=== PATIENT | female | born 1930 | race Caucasian/White ===

== ENCOUNTER 2017-02-14 12:45 | Emergency (ER) | payer OTHER ==
--- NOTE | 2017-02-14 12:59 | EDPHY ---
H & P Time Seen by Provider: 02/14/17 12:56 HPI/ROS: CHIEF COMPLAINT: Hypertension HISTORY OF PRESENT ILLNESS: Patient is an 86-year-old female with multiple medical problems. The patient was concerned because she has been having elevated blood pressures. She has noticed this more significantly over the past 3 weeks. In the past she was treated for hypertension but her doctor noted that she was having fluctuating pressures. She would occasionally have episodes of hypotension. Because of this she was taken off her hypertension medications. Patient states she checks her blood pressure regularly. She noticed that her blood pressures been going high, as stated above, for the past 3 weeks. Last night she called the advice nurse because she measured her blood pressure at 195 systolic. She was told to measure her blood pressure throughout the night in come to the emergency department if it worsened. Patient has continued to have elevated blood pressures. She has no symptoms. She denies headache, confusion, shortness of breath, weakness, numbness, dizziness. REVIEW OF SYSTEMS: My complete review of systems is negative except as mentioned in the HPI. Past Medical/Surgical History: Includes coronary artery disease, diverticulosis, anxiety, arthritis, depression , GERD, hypertension, osteoporosis Past surgical history: Includes ventral hernia repair, appendectomy, lumpectomy , colostomy, hysterectomy, toe amputation Family history: Father mother with heart attack Social history: Patient does not smoke Smoking Status: Former smoker Physical Exam: 197/88, 54, 24, 94% on room air, 36.5 GENERAL: No acute distress, alert. Uses a walker. HEENT: Eyes normal to inspection, normal pharynx, no signs of dehydration. NECK: No thyromegaly, no lymphadenopathy, supple. RESPIRATORY: Clear to auscultation bilaterally, no rales, rhonchi or wheezing. CVS: Regular rate and rhythm, no rubs, murmurs, or gallops. ABDOMEN: Soft, nontender, nondistended, no organomegaly. BACK: Normal to inspection, no CVA tenderness. SKIN: Normal color, no rash, warm, dry. No pallor. EXTREMITIES: No pedal edema, no calf tenderness, no Homans sign or cords, no joint swelling. NEURO/PSYCH: Higher functions: Alert and Oriented x3. Normal speech and cognition. Normal mood and affect. Cranial nerves: Normal as tested. Cerebellar: Normal as tested. Good finger to nose, good [id number],gait coordinated with walker. Peripheral exam: Normal motor exam. Normal sensation. Constitutional: Initial Vital Signs Temperature (C) 36.5 C 02/14/17 13:01 Heart Rate 59 L 02/14/17 13:01 Respiratory Rate 24 H 02/14/17 13:01 Blood Pressure 197/88 H 02/14/17 13:01 O2 Sat (%) 94 02/14/17 13:01 O2 Delivery Mode Room Air Allergies/Adverse Reactions: Penicillins Allergy (Severe, Verified 02/14/17 13:00) Hives meperidine HCl [From Demerol] Allergy (Intermediate, Verified 02/14/17 13:00) Other-Enter Comments clindamycin Allergy (Mild, Verified 02/14/17 13:00) Other-Enter Comments lincomycin [Lincomycin] Allergy (Verified 02/14/17 13:00) Home Medications: Medication Instructions Recorded Aspirin EC [Aspirin EC 81 mg (OTC)] 81 mg PO HS 12/07/13 Atorvastatin Calcium [Lipitor 40 40 mg PO HS 12/07/13 mg (RX)] Calcium Carb W/Vit D [Calcium Carb 500 mg PO TID 12/07/13 W/Vit D 500/200 (OTC)] Cetirizine [ZyRTEC] 10 mg PO DAILY 12/07/13 Clopidogrel Bisulfate [Plavix (RX)] 75 mg PO DAILY18 12/07/13 Lisinopril [Zestril 40 mg (RX)] 40 mg PO DAILY 12/07/13 Metoprolol Succinate Xr [Toprol Xl 100 mg PO DAILY 12/07/13 100 mg (RX)] Omeprazole [Prilosec 20 mg] 20 mg PO HS 12/07/13 Oxybutynin Chloride Xl [Ditropan 5 mg PO HS 12/07/13 Xl] Tears/Hypromellose [Natural 1 drop EACHEYE PRN PRN 12/07/13 Balance (OTC)] Venlafaxine Xr [Effexor Xr] 150 mg PO HS 12/07/13 amLODIPine BESYLATE [Norvasc] 10 mg PO DAILY 12/07/13 oxyCODONE/APAP 5/325 [Percocet 2 tab PO Q4 PRN #30 tab 12/28/13 5/325 (*)] Medical Decision Making ED Course/Re-evaluation: In the emergency department I discussed possible etiologies with the patient. On recheck her blood pressure was 196/86. Patient is without complaints at this time. Because she states that she had episodes of hypotension, I did start her on antihypertensive medication in the emergency department. I feel it is more prudent to have her evaluated by her primary care physician. I do not feel she is having hypertensive urgency or emergency. I doubt CVA or ACS. I discussed this at length with the patient. I answered all her questions. She is given warnings prior to leaving. She will return with worsening symptoms. Differential Diagnosis: My differential includes but is not limited to hypertensive emergency, hypertensive urgency, hypertension, ACS, acute GA, medication error, CVA Departure - Departure Disposition: Home, Routine, Self-Care Clinical Impression: Hypertension Qualifiers: Hypertension type: essential hypertension Qualified Code(s): I10 - Essential ( primary) hypertension Condition: Good Instructions: Hypertension (ED) Additional Instructions: Return with headache, dizziness, lightheadedness, shortness of breath, chest pain or any other concerns. You need close follow-up with her primary care physician this week. Referrals: Ewa Li MD [Primary Care Provider] - 1-2 days without fail
[2017-02-14 13:03] VITALS: TEMP 97.7
[2017-02-14 13:18] VITALS: BP 166/80; PULSE 58; RESP 18; O2SAT 92
== END 2017-02-14 13:17 | disposition home or self-care (01) ==
LOC: CED 12:45
DX: I10 Essential (primary) hypertension (principal); I25.10 Atherosclerotic heart disease of native coronary artery without angina pectoris; Z79.82 Long term (current) use of aspirin; Z87.891 Personal history of nicotine dependence

== ENCOUNTER → 2018-08-30 | Outpatient (CLI) | payer OTHER | LOC: EMCIMAGING 08:28 | PROVIDERS: ATTEND Family Medicine | DX: N64.4 Mastodynia (principal) | CPT/HCPCS: 77066-PN ==